=== PATIENT | male | born 1960 | race Caucasian/White ===

== ENCOUNTER 2018-12-24 11:39 | Emergency (ER) | payer OTHER ==
[2018-12-24 12:25] LABS: #Basophils 0.1 thou/uL (0.0-0.2); #Eosinphils 0.1 thou/uL (0.0-0.7); #Lymphocytes 1.8 thou/uL (1.20-3.40); #Monocytes 0.5 thou/uL (0.11-0.59); #Neutrophils 4.3 thou/uL (1.40-6.50); %Basophils 1.3 % (0.0-1.0); %Eosinophils 1.8 % (0.0-10.0); %Lymphocytes 26.9 % (21.0-51.0); Hemoglobin 15.3 g/dL (14.0-18.0); Mean Corpuscular HGB CONC 32.3 g/dL (32.0-36.0); Mean Corpuscular Volume 93.1 fL (78.0-98.0); Mean Platelet Volume 6.4 fL (7.4-10.4); Platelet Count 230 thou/uL (130-400); RBC Distribution Width 12.4 % (11.5-14.5); Red Blood Cell (RBC) Count 5.08 mill/uL (4.70-6.10); White Blood Cell (WBC) Count 6.9 thou/uL (4.8-10.8)
[2018-12-24 12:37] LABS: ALT (SGPT) 25 U/L (8-55); AST (SGOT) 20 U/L (5-34); Albumin 4.2 g/dL (3.5-5.0); Alkaline Phosphatase 65 U/L (40-150); Anion Gap 12 mmol/L (10-20); BUN (Urea Nitrogen) 12 mg/dL (8.4-25.7); Bilirubin, Total 0.9 mg/dL (0.2-1.2); Calc. Creatinine Clearance 0 mL/min (70-130); Calcium 9.6 mg/dL (7.8-10.44); Carbon Dioxide 25 mmol/L (22-29); Chloride 106 mmol/L (98-107); Estimated GFR-MDRD 83; Globulin 3.1 g/dL (2.4-3.5); Glucose 93 mg/dL (70-105); Potassium 4.2 mmol/L (3.5-5.1); Protein, Total 7.3 g/dL (6.0-8.3); Sodium 139 mmol/L (136-145)
--- NOTE | 2018-12-24 13:13 | CT ---
CT ABDOMEN WITHOUT CONTRAST: CT PELVIS WITHOUT CONTRAST: HISTORY: Right flank pain. COMPARISON: None. FINDINGS: ABDOMEN: The lung bases are clear. There is slight eventration of the anterior left hemidiaphragm, incompletely evaluated. Heart size is normal. No significant pericardial fluid. Limited evaluation of the solid organs due to lack of IV contrast. Diffuse hypoattenuation of the li len, likely due to hepatic steatosis. Grossly, no solid organ abnormality. Mild atrophy of the panc reas. The adrenal glands do appear to be symmetric in attenuation. There is CT evidence of cholelithiasis, without evidence of cholecystitis. No gastrohepatic, retrocrural, or periportal lymphadenopathy. There is stranding of the left abdominal mesentery with mildly prominent lymph nodes. Correlate for mesenteric lymphadenitis. No mesenteric free air or free fluid. Limited evaluation of the alimentary canal by the lack of oral contrast. Small hiatal hernia is note d. No evidence of bowel obstruction. There does appear to be fat attenuation involving the duodenal and terminal ileal mucosa, nonspecific. The ileocecal junction does appear to be normal. Normal ca liber appendix. Scattered fecal material in a nondistended, nondilated colon. Diverticulosis withou t evidence of diverticulitis. There is a nonobstructing punctate calculus in the inferior right renal pelvis, measuring approximate ly 1 mm. Bilaterally, no hydronephrosis or perinephric fat stranding. The bilateral ureters have a normal caliber. No hydroureter, periureteral fat stranding, or ureterolithiasis. PELVIS: No mass, lymphadenopathy, free air, or free fluid. No calcifications within the urinary jessica dder. There is a nonspecific hypodensity in the anterior midline subcutaneous fat/dermis, measuring 2.9 x 1 .6 cm, with an attenuation coefficient of 26 Hounsfield units. Correlate for possible complex cyst/s ebaceous cyst. IMPRESSION: 1. Bilaterally, no evidence of obstructive uropathy. 2. Punctate, nonobstructing calculus in the right intrarenal collecting system. 3. Nonspecific fatty infiltration of the mucosa, as described above. 4. Possible mesenteric lymphadenitis involving the left abdominal mesentery. 5. Cholelithiasis without evidence of cholecystitis. POS: [facility]
== END 2018-12-24 13:10 | disposition home or self-care (01) ==
LOC: SCSER 11:39
DX: I88.0 Nonspecific mesenteric lymphadenitis (principal); I10 Essential (primary) hypertension; Z79.891 Long term (current) use of opiate analgesic
CPT/HCPCS: 74176; 80053; 85025

== ENCOUNTER 2019-01-08 15:38 | Outpatient (CLI) | payer OTHER ==
[2019-01-08 17:07] LABS: #Basophils 0.1 thou/uL (0.0-0.2); #Eosinphils 0.1 thou/uL (0.0-0.7); #Lymphocytes 2.1 thou/uL (1.20-3.40); #Monocytes 0.9 thou/uL (0.11-0.59); #Neutrophils 4.8 thou/uL (1.40-6.50); %Basophils 1.1 % (0.0-1.0); %Eosinophils 1.8 % (0.0-10.0); %Lymphocytes 26.3 % (21.0-51.0); %Neutrophils 59.9 % (42.0-75.0); Mean Corpuscular HGB CONC 33.5 g/dL (32.0-36.0); Mean Corpuscular Hemoglobin 31.7 pg (27.0-31.0); Mean Corpuscular Volume 94.4 fL (78.0-98.0); Platelet Count 251 thou/uL (130-400); Red Blood Cell (RBC) Count 4.74 mill/uL (4.70-6.10)
[2019-01-08 17:28] LABS: ALT (SGPT) 20 U/L (8-55); AST (SGOT) 17 U/L (5-34); Albumin 4.2 g/dL (3.5-5.0); Alkaline Phosphatase 60 U/L (40-150); Anion Gap 10 mmol/L (10-20); BUN (Urea Nitrogen) 15 mg/dL (8.4-25.7); Bilirubin, Direct 0.3 mg/dL (0.1-0.3); Bilirubin, Total 0.8 mg/dL (0.2-1.2); Calc. Creatinine Clearance 0 mL/min (70-130); Calcium 9.5 mg/dL (7.8-10.44); Carbon Dioxide 28 mmol/L (22-29); Chloride 107 mmol/L (98-107); Estimated GFR-MDRD 75; Globulin 2.9 g/dL (2.4-3.5); Glucose 87 mg/dL (70-105); Protein, Total 7.1 g/dL (6.0-8.3); Sodium 141 mmol/L (136-145)
--- NOTE | 2019-01-08 21:33 | EKG ---
Test Reason : Blood Pressure : / mmHG Vent. Rate : 071 BPM Atrial Rate : 071 BPM P-R Int : 144 ms QRS Dur : 090 ms QT Int : 400 ms P-R-T Axes : 044 057 051 degrees QTc Int : 434 ms Normal sinus rhythm Normal ECG When compared with ECG of 08-JAN-2000 08:00, No significant change was found Confirmed by DELILAH ROWAN, SLuis Fernando ([id number]) on 01/08/2019 9:32:41 PM Referred By: LEX Confirmed By:DR. Lindy MAZARIEGOS MD
== END 2019-01-08 15:39 | disposition home or self-care (01) ==
LOC: LABBT 15:38
PROVIDERS: ATTEND Surgery
DX: Z01.818 Encounter for other preprocedural examination (principal); K80.20 Calculus of gallbladder without cholecystitis without obstruction
CPT/HCPCS: 80053; 80076; 85025; 93005; 93010

== ENCOUNTER 2019-01-12 05:57 | Day surgery (SDC) | payer OTHER ==
[2019-01-08 16:16] VITALS: BMI 30.9
[2019-01-12] MEDS ORDERED: Midazolam HCl 2 mg/2 ml Vial ONE (06:16)
[2019-01-12] MEDS ORDERED: Fentanyl 100 MCG/2 ML VIAL ONE ×2 (06:16→08:20)
[2019-01-12] MEDS ORDERED: Lidocaine 2% Jelly 5 ML TUBE ONE (06:16)
[2019-01-12] MEDS ORDERED: Bupivacaine/Epinephrine 0.25% 30 ML VIAL ONE (06:36)
[2019-01-12] MEDS ORDERED: cefOXitin 2 GM VIAL ONE (07:14)
[2019-01-12] MEDS ORDERED: Sodium Chloride 0.9% 100 ML ONE (07:14)
[2019-01-12] MEDS ORDERED: HYDROcodone/Acetaminophen 5/325 mg Tablet ONE (09:56)
[2019-01-12] MEDS ORDERED: Ondansetron PF 4 MG/2 ML Vial ONE (15:20)
[2019-01-12] MEDS ORDERED: Lidocaine 1% PF 5 ML VIAL ONE (15:20)
[2019-01-12] MEDS ORDERED: PROPOFOL 200 MG/20 ML VIAL ONE (15:20)
[2019-01-12] MEDS ORDERED: Dexamethasone 20 MG/5 ML VIAL ONE (15:20)
[2019-01-12] MEDS ORDERED: Rocuronium Bromide 10 MG/ML (10ML VIAL) ONE (15:20)
[2019-01-12] MEDS ORDERED: ePHEDrine 50 MG/ML VIAL ONE (15:20)
[2019-01-12] MEDS ORDERED: Glycopyrrolate 0.2 MG/ML 5 ML SYRINGE ONE (15:20)
--- NOTE | 2019-01-12 15:30 | OP ---
DATE OF PROCEDURE: 01/12/2019 PREOPERATIVE DIAGNOSIS: Chronic cholecystitis. PROCEDURE PERFORMED: Laparoscopic cholecystectomy. INDICATIONS: This is a 58-year-old male, who has been having episodic right upper quadrant pain radiating back. He had a CT scan showing cholelithiasis. FINDINGS: Extensive adhesions to the gallbladder encased in this inflammatory tissue and a small caliber cystic duct. DESCRIPTION OF PROCEDURE: After informed consent was obtained, the patient was taken to the operating room and given general endotracheal anesthesia. He was placed in the supine position. Abdomen was prepped and draped in usual fashion. Local anesthesia was infiltrated subcutaneously and deep. Subumbilical incision was performed. Subcu divided sharply. The fascia was grasped and 2 stay sutures of 0 Vicryl placed through side of midline. Midline incised. Digital palpation revealed no local adhesions. A blunt 12 mm trocar was inserted. Pneumoperitoneum was created to a pressure of 15 mmHg. A 0-degree laparoscope was inserted under direct vision. Three 5-mm ports were placed subcostally. The gallbladder was grasped and advanced superiorly. The gallbladder had to be dissected out and this was encased in inflammatory adipose. It was really a fairly small gallbladder. The cystic duct and artery were dissected out, triply ligated and divided. The gallbladder was removed from its fossa utilizing electrocautery. It was placed in an endosac, and removed from the abdomen in the endosac. Hemostasis was achieved with electrocautery. The abdomen was irrigated. Irrigation fluid removed. The fascia was closed with interrupted 0 Vicryl suture. The skin was closed with interrupted 4-0 Rapide. Dermabond applied. The patient tolerated the procedure well and was transferred to Recovery in good condition. Sponge and needle count verified correct x2. Job ID: [id number]
== END 2019-01-12 10:46 | disposition home or self-care (01) ==
LOC: SDC 05:57
PROVIDERS: ATTEND Surgery
PROC: 0FT44ZZ Resection of Gallbladder, Percutaneous Endoscopic Approach (ICD-10-PCS; principal; 2019-01-12)
DX: K81.1 Chronic cholecystitis (principal); Z79.899 Other long term (current) drug therapy; Z88.7 Allergy status to serum and vaccine; Z91.018 Allergy to other foods
CPT/HCPCS: 88304; J0694; J2250; J3010; J7050

== ENCOUNTER 2022-11-08 09:43 | Outpatient (CLI) | payer BC | END 2022-11-08 09:44 | disposition home or self-care (01) | LOC: RAD 09:43 | PROVIDERS: ATTEND Internal Medicine Critical Care Medicine | DX: R06.00 Dyspnea, unspecified (principal) | CPT/HCPCS: 71046 ==

== ENCOUNTER 2024-02-28 07:34 | Day surgery (SDC) | payer BC ==
[2024-02-21 12:10] VITALS: BMI 33.3
[2024-02-28] MEDS ORDERED: Famotidine/PF 20 mg/2ml Vial ONE (09:52)
[2024-02-28] MEDS ORDERED: fentaNYL PF 100 MCG/2 ML SYRINGE ONE (10:04)
[2024-02-28] MEDS ORDERED: PROPOFOL 40 ML ONE (10:04)
[2024-02-28] MEDS ORDERED: Lidocaine 1% PF 5 ML VIAL ONE (10:05)
[2024-02-28] MEDS ORDERED: EPINEPHrine 1 MG/ML VIAL ONE (10:31)
[2024-02-28] MEDS ORDERED: Bupivacaine 0.25% HCL 30 ML VIAL ONE (10:31)
[2024-02-28] MEDS ORDERED: Lidocaine 2% PF 5 ML VIAL ONE (10:31)
[2024-02-28] MEDS ORDERED: Midazolam HCl 2 mg/2 ml Vial ONE (10:55)
[2024-02-28] MEDS ORDERED: CEFAZOLIN 1 GM VIAL ONE (10:57)
== END 2024-02-28 14:03 | disposition home or self-care (01) ==
LOC: SDC 07:34
PROVIDERS: ATTEND Surgery
PROC: 0HB7XZZ Excision of Abdomen Skin, External Approach (ICD-10-PCS; principal; 2024-02-28)
DX: L72.3 Sebaceous cyst (principal); E84.9 Cystic fibrosis, unspecified; I10 Essential (primary) hypertension; M19.90 Unspecified osteoarthritis, unspecified site; Z86.16 Personal history of COVID-19; Z90.49 Acquired absence of other specified parts of digestive tract; Z98.890 Other specified postprocedural states; Z88.7 Allergy status to serum and vaccine; Z88.8 Allergy status to other drugs, medicaments and biological substances
CPT/HCPCS: 88304; A6258; J0171; J0665; J0690; J2001; J2250; J2704; S0028